=== PATIENT | male | born 2005 | race Caucasian/White ===

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

== ENCOUNTER 2024-01-17 11:37 | Observation (INO) ==
[2024-01-17 12:36] LABS: ABS Lymphocytes 0.9 10^3/uL (1.0-4.8); ABS Monocytes 0.7 10^3/uL (0.0-1.1); ABS Neutrophils 9.1 10^3/uL (1.5-7.6); Eosinophil % 0.3 %; Hematocrit 36.8 % (38-53); Hemoglobin 11.8 g/dL (13.2-16.3); Lymphocyte % 8.8 %; Mean Corpuscular Hemoglobin 27.1 pg (27-33); Mean Corpuscular Volume 84.6 fL (80-97); Platelet Count 204 10^3/uL (150-450); Red Blood Count 4.34 10^6/uL (4.06-5.63); Red Cell Distribution Width 16.9 % (12-17); White Blood Count 10.8 10^3/uL (3.6-10.2)
[2024-01-17 13:27] LABS: Albumin 4.6 g/dL (3.2-5.2); Albumin/Globulin Ratio 1.8 (1-3); Calcium 9.6 mg/dL (8.6-10.3); Creatinine, Serum 0.78 mg/dL (0.67-1.17); Globulin 2.6 g/dL (2-4); Potassium 4.2 mmol/L (3.5-5.0); Total Bilirubin 0.5 mg/dL (0.2-1.0); Total Protein 7.2 g/dL (6.4-8.9); eGFR CKD-EPI 130.9 (>60)
[2024-01-17] MEDS ORDERED: Lidocaine 1% MPF 5 ML VIAL ONE ×3 (14:21→20:04)
[2024-01-17] MEDS ORDERED: Bacitracin OINTMENT TUBE ONE ×2 (14:21→15:59)
[2024-01-17] MEDS ORDERED: fentaNYL 100 mcg/2 ml 50 MCG/ML VIAL IV SLOW PU PRN (16:25)
[2024-01-17] MEDS ORDERED: ceFAZolin 2 GM PREMIX 2 GM/50 ML BAG ONE (16:54)
[2024-01-17] MEDS ORDERED: Metoclopramide 5 MG/ML VIAL (10 mg) IV PRN (19:32)
[2024-01-17] MEDS ORDERED: fentaNYL 100 mcg/2 ml 50 MCG/ML VIAL IV PRN (19:32)
[2024-01-17] MEDS ORDERED: Ondansetron 4 mg VIAL 2 MG/ML 2 ml VIAL IV PRN (19:32)
[2024-01-17] MEDS ORDERED: Naloxone 0.4 mg VIAL 0.4 mg/ml 1 ml VIAL IV PRN (19:32)
[2024-01-17] MEDS ORDERED: Midazolam 2 mg/2 ml VIAL 1 mg/ml 2 ml VIAL (2 mg) ONE (19:34)
[2024-01-17] MEDS ORDERED: fentaNYL 100 mcg/2 ml 50 MCG/ML VIAL ONE (19:34)
[2024-01-17] MEDS ORDERED: Lidocaine 2% PF 5 ML VIAL ONE (19:35)
[2024-01-17] MEDS ORDERED: Propofol 10 MG/ML 20 ML BTL ONE (19:35)
[2024-01-17] MEDS ORDERED: NS 0.45% 1000 ml BAG 1,000 ML IV SCH (20:00)
[2024-01-18] MEDS: Acetaminophen IV 1 GM/100ML 1,000 MG/100 ML BAG IV ONE (01:14)
[2024-01-18] MEDS: Buffered Lidocaine 1% SYRIN 1 ml INTRADERM ONE (01:15)
[2024-01-18] MEDS: Scopolamine 1 mg/72hr PATCH TRANSDERM ONE (01:15)
[2024-01-18] MEDS: Estradiol 1 mg TAB (NF) PO SCH (01:16)
[2024-01-18] MEDS: ceFAZolin 1 GM in Dextrose 1 GM/50 ML BAG IVPB SCH ×2 (05:28→06:03)
[2024-01-18 06:26] LABS: ABS Lymphocytes 0.8 10^3/uL (1.0-4.8); ABS Monocytes 0.4 10^3/uL (0.0-1.1); ABS Neutrophils 6.4 10^3/uL (1.5-7.6); Hematocrit 33.5 % (38-53); Lymphocyte % 11.1 %; Mean Corpuscular Hemoglobin 27.9 pg (27-33); Mean Corpuscular Volume 84.5 fL (80-97); Mean Platelet Volume 8.1 fL (7.5-11.2); Platelet Count 186 10^3/uL (150-450); Red Blood Count 3.96 10^6/uL (4.06-5.63); Red Cell Distribution Width 16.6 % (12-17); White Blood Count 7.6 10^3/uL (3.6-10.2)
[2024-01-18 07:57] LABS: Calcium 9.1 mg/dL (8.6-10.3); Creatinine, Serum 0.92 mg/dL (0.67-1.17); Potassium 4.6 mmol/L (3.5-5.0); eGFR CKD-EPI 122.1 (>60)
[2024-01-18] MEDS: CMCS: Estradiol 1 mg TAB (NF) PO SCH (08:40)
[2024-01-18] MEDS: Lactated Ringers 1000 ml BAG 1,000 ML IV SCH (08:47)
[2024-01-18] MEDS: COVID VAC 24-25 (12+) (Moderna) Syringe 0.5 mL IM ONE (10:41)
[2024-01-18 11:26] VITALS: BP 112/62
== END 2024-01-18 11:40 | disposition home or self-care (01) ==
LOC: EDHOLD 11:37 → ED 11:37 → AA 17:05 → SSU 22:57
PROVIDERS: ADMIT Student in an Organized Health Care Education/Training Program; ATTEND Student in an Organized Health Care Education/Training Program